=== PATIENT | female | born 1970 | race Caucasian/White ===

== ENCOUNTER → 2019-05-04 | Outpatient (CLI) | payer BC ==
--- NOTE | 2019-05-04 16:14 | Diagnostic Imaging Report ---
TECHNIQUE: Magnetic resonance imaging of the LEFT KNEE was performed WITHOUT injected contrast. HISTORY: PERIPHERAL MEDIAL MENISCUS TEAR , twisted, pain, swelling COMPARISON: None available. FINDINGS: LIGAMENTS AND TENDONS: ACL: Intact PCL: Intact Collateral ligaments: Intact Iliotibial band: Unremarkable Popliteal tendon: Intact Extensor mechanism: Intact JOINT: Menisci: Medial: Mild intrasubstance degeneration, no discrete tear. Lateral: Mild complex tearing of the body, most notably the free margin along with mild peripheral extrusion of the remaining body. Articular Cartilage: Medial Compartment: Low-grade erosion of the weightbearing cartilage. Lateral Compartment: Intermediate to high-grade erosions of the weightbearing cartilage. Patellofemoral Compartment: High-grade to full-thickness erosions at the lateral patellar facet and apex. Joint Fluid: Synovitis with moderate nonspecific joint effusion. BONES: No focal or infiltrative bone marrow replacing abnormality. No acute fracture. Mild lateral translation of the patella. SOFT TISSUES: Otherwise, unremarkable. IMPRESSION: 1. 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 2. Reactive synovitis with associated moderate joint effusion. Signed by: Dr. Kin Oconnor D.O., M.M.M. on 05/04/2019 4:10 PM
== END ==
LOC: MRI 13:36
PROVIDERS: ATTEND Specialist
DX: S83.222A Peripheral tear of medial meniscus, current injury, left knee, initial encounter (principal); M17.12 Unilateral primary osteoarthritis, left knee

== ENCOUNTER 2019-05-24 15:59 | Outpatient (RCR) | payer BC | END 2019-06-06 | LOC: PT 15:59 | PROVIDERS: ATTEND Specialist | DX: M25.562 Pain in left knee (principal); M25.662 Stiffness of left knee, not elsewhere classified; M62.81 Muscle weakness (generalized) | CPT/HCPCS: 97139 ==